=== PATIENT | female | born 1950 | race Hispanic/Latino ===

== ENCOUNTER 2017-10-09 19:52 | Emergency (ER) | payer OTHER ==
[~2017-10-09 19:52] MED LIST: ASPI-555 PO; CALC-190 PO; LEVO50TA11 PO; LOSA25TA21 PO; MELA3TAB69 PO; METF500T6 PO; VITA1CAP PO
[2017-10-09] MEDS ORDERED: ONDANSETRON ODT 4 MG TAB ONE (20:50)
[2017-10-09] MEDS ORDERED: BACLOFEN 10 MG TABLET PO ONE (20:50)
[2017-10-09] MEDS ORDERED: MORPHINE SULFATE 4 MG/1ML SYG ONE (20:51)
== END 2017-10-09 22:13 | disposition home or self-care (01) ==
LOC: EDH 19:52
DX: M54.42 Lumbago with sciatica, left side (principal); E11.9 Type 2 diabetes mellitus without complications; I10 Essential (primary) hypertension; E07.9 Disorder of thyroid, unspecified; Z79.899 Other long term (current) drug therapy
CPT/HCPCS: 72100; 96372; 99284; J2270

== ENCOUNTER → 2017-10-13 | Outpatient (CLI) | payer OTHER | END | disposition home or self-care (01) | LOC: RAH 10-12 10:20 | PROVIDERS: ATTEND Internal Medicine | DX: M25.552 Pain in left hip (principal) | CPT/HCPCS: 73502 ==

== ENCOUNTER → 2019-10-18 | Outpatient (CLI) | payer OTHER ==
[~2019-10-18] MED LIST changes: -ASPI-555 PO; +ASPI-556 PO; -LOSA25TA21 PO; +LOSA25TA41 PO; +METF-444 PO; -METF500T6 PO
== END | disposition home or self-care (01) ==
LOC: RAH 11:28
PROVIDERS: ATTEND Internal Medicine
DX: M85.88 Other specified disorders of bone density and structure, other site (principal); M54.5 Low back pain
CPT/HCPCS: 72070; 72100; 73090

== ENCOUNTER → 2020-02-25 | Outpatient (CLI) | payer OTHER | END | disposition home or self-care (01) | LOC: RAH 13:12 | PROVIDERS: ATTEND Internal Medicine | DX: M19.011 Primary osteoarthritis, right shoulder (principal); M25.511 Pain in right shoulder | CPT/HCPCS: 73030; 73060 ==

== ENCOUNTER → 2021-01-26 | Outpatient (CLI) | payer OTHER | END | disposition home or self-care (01) | LOC: RAH 11:13 | PROVIDERS: ATTEND Internal Medicine | DX: M47.22 Other spondylosis with radiculopathy, cervical region (principal) | CPT/HCPCS: 72040 ==